=== PATIENT | male | born 1960 | race Caucasian/White ===

== ENCOUNTER 2016-11-21 07:33 | Day surgery (SDC) | payer MEDICARE, OTHER ==
[2016-11-21] VITALS (8 sets, daily range): BP systolic 107–132; BP diastolic 62–82; PULSE 86–95; RESP 16–21; O2SAT 93–97
[~2016-11-21] VITALS: Ht 195.6 cm; Wt 135.0 kg
[~2016-11-21 07:33] MED LIST: CeFAZolin Inj 2 GM in IV Premix 1 EACH IV ONE; CeFAZolin Inj 3 GM in IV Premix 1 EACH IV ONE; GABA-502 PO; Lactated Ringer's 1,000 ML IV SCH; TAMS0.4C98 PO; VENL150C PO; ms contin; oxycodone; synthroid
[2016-11-21] MEDS ORDERED: Ondansetron 2 mg/mL 2 mL Inj ONE (07:34)
[2016-11-21] MEDS ORDERED: EPHEDrine/NS 5 mg/mL 5 mL Syringe ONE (07:34)
[2016-11-21] MEDS ORDERED: Propofol 10,000 mCg/mL 20 mL Inj ONE (07:34)
[2016-11-21] MEDS ORDERED: fentaNYL-PF 50 mCg/mL 2 mL Inj ONE (07:34)
[2016-11-21] MEDS ORDERED: Lactated Ringer's 1,000 ML IV ONE (08:21)
--- NOTE | 2016-11-21 08:36 | PCM.HPANE ---
Patient Data Surgeon Admitting Provider: Attending Provider:Sammie Rowan MD Primary Care Physician:Patrick Cho DO Other Provider:Yue Padroningham Anesthesia Reason for Visit Left Kidney Stone Ht/WT & BMI Height (Feet): 6 Height (Inches): 5 Weight (Kilograms): 135 Body Mass Index 35.00 Allergies Coded Allergies: No Known Allergies (Unverified , 11/19/16) Past Anesthesia History Anesthesia History: Denies:: Abnormal Airway, Anesthesia Reactions, Difficult Intubation, Fam Anesthesia Reaction Diabetes History Hx Diabetes?: No MRSA MRSA: No Medications Hypertension Medication: No Home Meds Incl Beta Sully: No Reported Medications [synthroid] No Conflict CheckUnknown Dose DAILY 11/19/16 Tamsulosin (Flomax)0.4 Mg Capsule0.4 Mg PO DAILY Ref 0 11/19/16 [oxycodone] No Conflict CheckUnknown Dose TID PRN BTP 11/19/16 [ms contin] No Conflict CheckUnknown Dose TID 11/19/16 Gabapentin 300 Mg [id number] Mg PO TID Ref 0 11/19/16 Venlafaxine ER (Effexor XR)150 Mg [id number] Mg PO DAILY Ref 0 11/19/16 History HEENT History: Denies:: Abnormal Airway Cataracts Difficult Intubation Dysphagia Glaucoma Hearing Problem Sinus Problem TMJ Cardiovascular History: Denies:: AICD Abdominal Aortic Aneurism Atrial Fibrillation Coronary Artery Disease Edema Heart Murmur Hypertension Irregular Heartbeat Pacemaker Peripheral Vascular Rheumatic Fever Hx of Respiratory Problem?: No Respiratory History: Denies:: Asthma COPD Emphysema Oxygen Administration Pneumonia Pulmonary Embolism Tuberculosis Use of C-PAP Machine Use of Inhalers / NEBS Hx Neurologic Problems?: No Neurological History: Denies:: CVA Dementia Dizziness Headaches Multiple Sclerosis Parkinson's Disease Seizures Gastrointestinal History: Denies:: Cirrhosis Gall Bladder Disease Gastroesphageal Reflux Gastrointestinal Bleeding Heartburn Hepatitis Hiatal Hernia Liver Disease Hx of Problems?: Yes Genitourinary History: Positive for:: Kidney Stones (left kidney stone current admission ) Denies:: Urinary Tract Infection Other Pertinent History: several kidney stones in past, had surgery before Male Hx: Denies:: Prostate Problems Scrotal Mass Testicular Surgery Skin History: Denies:: History Skin Disorders? Pressure Ulcers Hx Musculoskeletal Problems?: Yes Musculoskeletal History: Positive for:: Back Injury (hx of three spinal fusions = chronic pain) Denies:: Fibromyalgia Joint Replacement Musculoskeletal Trauma Myasthenia Gravis Osteoarthritis Hx of Psycho/Social Problems?: Yes Psycho Social History: Positive for:: Anxiety Hx Depression Hx Surgeries?: Yes (spinal surgeryx 3, eswl, wrist ) Hx Any Other Health Problems?: Yes Other History: Positive for:: Thyroid Disease Denies:: Cancer History Blood Transfusions: Positive for:: Accept Blood Products? Denies:: Blood Transfusions Hx Diabetes: No Hx Alcohol Use: NoHx Substance Use: NoHave You Smoked inLast 12 mo: No Stop/Bang S-Snoring: Do You Snore Loudly: No T-Tired: feel tired, fatigued: No O-Obsered: Observed not breath: No P-Blood Pressure: treated: No B- Body Mass Index > 35 kg/m2: Yes A- Age over 50: Yes N- Neck Large Circumference: Yes G- Gender Male: Yes VEDA Total Score: 4 VEDA Risk Assessment: High Risk, =/>3 Yes VEDA Category 2: Yes Risk Assessment Category Category 1A: Patient has history of documented sleep apnea, and HAS NOT received any narcotic, sedative or anesthesia administration during this stay. Category 1B: Patient has history of documented sleep apnea, and HAS received any narcotic , sedative or anesthesia administration during this stay Category 2: Patient has SUSPECTED Obstructive Sleep Apnea, and HAS received any narcotic , sedative or anesthesia administration during this stay. Category 3: Patient has SUSPECTED Obstructive Sleep Apnea and HAS NOT received narcotic, sedative or anesthesia administration during this stay. Category 4: Outpatient in Procedural Areas with known sleep apnea or who screen positive for High Risk via the STOP/BANG questionnaire. Exam Exam Vital Signs Vital Signs Date Time Temp Pulse Resp B/P Pulse Ox O2 Delivery O2 Flow Rate FiO2 11/21/16 08:15 36.5 95 18 120/74 95 Room Air General Appearance: Alert, Oriented X3, Cooperative, No Acute Distress HEENT/AIRWAY: MP 3 Lungs: Clear to Auscultation, Normal Air Movement Heart: Exam Unremarkable, Regular Rate/Rhythm, No Murmurs/Rubs/Gallops Meds/Labs/Diagnostics Admission Meds Current Medications Lactated Ringer's (Lr) 1,000 ml @ ud STK-MED ONCE IV Last administered on t 08:21; Start 11/21/16 at 08:21; Stop 11/21/16 at 08:22; Status DC Plan Impression Patient chart reviewed, patient interviewed and anesthestic plan with risks, benefits, and alternatives discussed, and informed consent obtained. NPO Status: confirmed before mn ASA Physical Status: ASA2 Mod Systemic Disease Anesthetic Plan: GA Bene/Risks/Altern/Consents: Yes HP Complete Prior to Induction: Yes Jigar Bang MD Nov 21, 2016 08:36
[2016-11-21 08:52] LABS: Mean Corpuscular Hemoglobin 28.4 pg (27.0-35.0); Mean Corpuscular Volume 83.4 fL (81-100)
--- NOTE | 2016-11-21 09:04 | DRSVH ---
PROCEDURE: X-RAY KUB ([id number]) INDICATIONS: LEFT KIDNEY STONE TECHNIQUE: One view of the abdomen acquired. COMPARISON: [facility], CT, CT KUB, 10/22/2016, 8:33. FINDINGS: Surgical changes and devices: Lower lumbar spine fixation hardware redemonstrated. Bowel: Bowel gas pattern is normal. Soft tissues: 1.1 cm calcification is seen projected over the midpole of the left kidney. Bones: No suspicious bony lesions. IMPRESSION: 1.1 cm left renal calcification redemonstrated. Dictated by: Michael Ritchie [facility] Interpreted: Arun Hair MD on 11/21/2016 at 9:03 Transcribed by: ABBE on 11/21/2016 at 9:04 Approved by: Arun Hair M.D. on 11/22/2016 at 13:30
[2016-11-21] MEDS ORDERED: HYDROcodone-APAP 5-325 mg Tablet PO PRN (09:50)
[2016-11-21] MEDS ORDERED: Lactated Ringer's 1,000 ML IV SCH (10:18)
[2016-11-21] MEDS ORDERED: Lactated Ringer's 500 ML IV PRN (10:18)
[2016-11-21] MEDS ORDERED: Ondansetron 2 mg/mL 2 mL Inj IVPUSH PRN (10:20)
[2016-11-21] MEDS ORDERED: HYDROmorphone 1 mg/mL Inj IVPUSH PRN (10:20)
[2016-11-21] MEDS ORDERED: Atropine 0.4 mg/mL Inj IVPUSH PRN (10:20)
[2016-11-21] MEDS ORDERED: Labetalol 5 mg/mL 4 mL Inj IV PRN (10:20)
[2016-11-21] MEDS ORDERED: Phenylephrine 10,000 mCg/mL Inj IVPUSH PRN (10:20)
[2016-11-21] MEDS ORDERED: Dexamethasone 4 mg/mL Inj IVPUSH PRN (10:20)
[2016-11-21] MEDS ORDERED: hydrALAZINE 20 mg/mL Inj IVPUSH PRN (10:20)
[2016-11-21] MEDS ORDERED: MetoCLOpramide 5 mg/mL 2 mL Inj IVPUSH PRN (10:20)
[2016-11-21] MEDS ORDERED: EPHEDrine Sulfate 50 mg/mL Inj IVPUSH PRN (10:20)
--- NOTE | 2016-11-21 10:32 | PCM.ANEP1 ---
Post Anesthesia Phase 1 PACU Phase 1 Assessment Vital Signs Vital Signs Date Time Temp Pulse Resp B/P Pulse Ox O2 Delivery O2 Flow Rate FiO2 11/21/16 08:15 36.5 95 18 120/74 95 Room Air Anesthetic Administered: GA Level of Alertness: Awake, talking DANGELO's with Equal Strength: Yes Pain: No Nausea or Vomiting: No Oxygen Delivery: Room Air Lungs: Clear to Auscultation, Normal Air Movement Dermatome Level: Full Sensation Jigar Bang MD Nov 21, 2016 10:32
[2016-11-21] MEDS: fentaNYL-PF 50 mCg/mL 2 mL Inj IVPUSH PRN ×3 (10:40→10:59)
--- NOTE | 2016-11-21 10:52 | PCM.ANEP2 ---
Post Anesthesia Evaluation ASA/CMS Post Anesthesia VS in Patient's Normal Range?: Yes Resp Stable; Airway Patent?: Yes CV Function & Hydration Stable: Yes Mental Status Recovered?: Yes Pain control Satisfactory?: Yes N/V Control Satisfactory?: Yes Jigar Bang MD Nov 21, 2016 10:52
--- NOTE | 2016-11-21 11:22 | OP ---
[address] [address] OPERATIVE REPORT PATIENT: VALARIE FUNEZ : 1960 MR#: [id number] ADMIT: 11/21/2016 JOB ID: [id number] DATE OF SURGERY: 11/21/2016 PREOPERATIVE DIAGNOSIS(ES): Left kidney stone. POSTOPERATIVE DIAGNOSIS(ES): Left kidney stone. PROCEDURE PERFORMED: Left extracorporeal shockwave lithotripsy. SURGEON: Sammie Rowan MD. SEMI CONDUCTOR ASSEMBLER: None. FINDINGS: Left kidney stone with excellent hazing after 1000 shocks at a power of 8. ANESTHESIA: General. ESTIMATED BLOOD LOSS: None. DRAINS: None. SPECIMENS: None. COMPLICATIONS: None. CONDITION: Stable. INDICATION FOR PROCEDURE: The patient is a 56-year-old man with a left kidney stone. He has two smaller lower pole stones that appear to be within the renal papilla. DESCRIPTION OF PROCEDURE: After informed consent was obtained, the patient was taken to the operating room. A time-out was performed identifying the correct patient, surgical site and procedure. General anesthesia was smoothly induced. He was given intravenous antibiotics just prior to the start of the procedure. He was placed in a supine position and positioned over the fluoroscopic device. The stone was located and isolated within the cross hairs of the fluoroscopy. The stone was submitted to a 1000 shocks with a gradually increased power ultimately to a level of to 8. The stone had excellent hazing within the first few 100 shocks. The patient appeared to tolerate the procedure well. He was reversed from general anesthesia and taken to the PACU in good and stable condition. MIC
== END 2016-11-21 23:59 | disposition home or self-care (01) ==
LOC: SAS 07:33
PROVIDERS: ATTEND Urology
DX: N20.0 Calculus of kidney (principal); F41.9 Anxiety disorder, unspecified; F32.9 Major depressive disorder, single episode, unspecified
CPT/HCPCS: 36415; 50590; 74000; 80048; 85027; J0690; J1170; J2250; J2405; J3010; J7120